=== PATIENT | female | born 1990 | race Caucasian/White ===

== ENCOUNTER 2017-02-04 01:41 | Inpatient (IN) | payer OTHER ==
[~2017-02-04] VITALS: Ht 157.5 cm; Wt 59.3 kg
[2017-02-04 01:54] LABS: URINE BLOOD (Dip) POC Negative (NEGATIVE)
[2017-02-04 02:03] VITALS: BP 125/90; PULSE 93; RESP 18
[2017-02-04] MEDS ORDERED: PREN-19 PO (02:05)
[2017-02-04] MEDS ORDERED: LACTATED RINGER'S 1,000 ML IV SCH (02:10)
[2017-02-04] MEDS ORDERED: METHYLERGONOVINE 0.2 MG INJ IM PRN ×2 (02:30→08:30)
[2017-02-04] MEDS ORDERED: IBUPROFEN 600 MG TAB PO PRN (02:30)
[2017-02-04] MEDS ORDERED: OXYTOCIN 30 UNITS/LR 500 ML IV PRN ×2 (02:30→08:30)
[2017-02-04] MEDS ORDERED: AMPICILLIN 2 GM/NS (PMX) 100 ML IV ONE (02:30)
[2017-02-04] MEDS ORDERED: CARBOPROST 250 MCG INJ IM PRN ×2 (02:30→08:30)
[2017-02-04] MEDS ORDERED: OXYTOCIN 30 UNITS/LR 500 ML IV SCH ×2 (02:30)
[2017-02-04] MEDS ORDERED: MISOPROSTOL 200 MCG TAB PR PRN ×2 (02:30→08:30)
[2017-02-04] MEDS ORDERED: LIDOCAINE 1% (MPF) 30 ML INJ INJ PRN (02:30)
[2017-02-04] MEDS ORDERED: BUTORPHANOL 2 MG INJ IV PRN (02:30)
[2017-02-04] MEDS ORDERED: LACTATED RINGER'S 1,000 ML IV PRN (03:00)
[2017-02-04 03:09] LABS: BASOPHILS % 0.2 % (0.0-2.0); EOSINOPHILS # 0.1 10^3/ul (0.0-0.5); EOSINOPHILS % 0.7 % (0.0-7.0); HEMATOCRIT 34.6 % (37.0-47.0); HEMOGLOBIN 11.2 g/dl (12.0-16.0); LYMPHOCYTES # 2.4 10^3/ul (0.8-2.9); LYMPHOCYTES % 23.6 % (15.0-51.0); MEAN CORPUSCULAR HEMOGLOBIN 28.3 pg (29.0-33.0); MEAN CORPUSCULAR HGB CONC 32.4 g/dl (32.0-37.0); MEAN CORPUSCULAR VOLUME 87.4 fl (82.0-101.0); MEAN PLATELET VOLUME 10.6 fl (7.4-10.4); MONOCYTE # 0.5 10^3/ul (0.3-0.9); MONOCYTES % 4.8 % (0.0-11.0); NEUTROPHIL # 7.1 10^3/ul (1.6-7.5); NEUTROPHILS % 69.8 % (39.0-77.0); PLATELET COUNT 225 10^3/UL (140-415); RED BLOOD COUNT 3.96 10^6/ul (4.20-5.40); RED CELL DISTRIBUTION WIDTH 18.5 % (11.5-14.5); WHITE BLOOD COUNT 10.2 10^3/ul (4.8-10.8)
--- NOTE | 2017-02-04 03:31 | HP ---
Date/Time of Note Date/Time of Note DATE: 02/04/17 TIME: 03:22 OB - History Hx of Present Free Text/Dictation 26y.o A0 at 39w5d in labor with uterine contractions q5min apart with intact membrane. no prenatla record is available at present admitted for expectant management GBS + Chief Complaint: UC's Estimated Due Date: Feb 06, 2017 : 4 Para: 3 Spontaneous : 0 Therapeutic : 0 Care: Other Ultrasounds: Other Obstetrical Complications: None Medical Complications: None Past Family/Social History * Past Medical, Surgical, Family and Obstetric Histories reviewed from chart. Blood Type: B+ Rubella: immune RPR/VDRL: Negative GBS Status: Positive HBsAG: Negative OB Admission Exam Vital Signs Vital Signs Vital Signs Date Time Temp Pulse Resp B/P Pulse Ox O2 Delivery O2 Flow Rate FiO2 02/04/17 02:03 98.2 93 18 125/90 Room Air Physical Exam HEENT: WNL Heart: Rhythm Normal Lungs: Clear, Equal Abdomen: WNL Extremities: Normal Reflexes: Normal Cervical Dilatation: 4cm Effacement: 75% Station: -2 Membranes: Intact Amniotic Fluid: Unevaluable Heart Rate: 130's Accelerations: Accelerations Present Decelerations: No Decelerations Varibility: Moderate Contractions on Admission: < 5 Minutes Apart Intensity: Moderate Last 72 hours Lab Results CBC & BMP 02/04/17 03:00 OB Assessment/Plan Reason for admission: active labor Other Assessment: IUP 39w5d Plan: Expectant Management Other plan: ampicillin MARTY SOSA MD Feb 04, 2017 03:31
[2017-02-04 03:36] LABS: INR 0.96; PROTIME 12.8 Sec (12.2-14.2)
[2017-02-04 03:37] LABS: ALBUMIN 3.2 g/dl (3.3-4.9); ALBUMIN/GLOBULIN RATIO 0.8; BILIRUBIN,INDIRECT 0.1 mg/dl (0-1.1); BILIRUBIN,TOTAL 0.1 mg/dl (0.2-1.3); CALCIUM 9.1 mg/dl (8.4-10.2); CREATININE 0.57 mg/dl (0.44-1.00); PARTIAL THROMBOPLASTIN TIME 26.9 Sec (25.0-35.0); TOTAL PROTEIN 7.2 g/dl (6.1-8.1); URIC ACID 5.4 mg/dl (3.1-7.9)
[2017-02-04] MEDS ORDERED: MINERAL OIL LIGHT 10 ML VIAL TOP ONE (05:30)
--- NOTE | 2017-02-04 05:34 | LDN ---
Date/Time of Note Date/Time of Note DATE: 02/04/17 TIME: 05:31 Delivery Summary Weeks of Gestation 39w5d Placenta Delivered: Spontaneously Meconium: none Episiotomy: No Perineal laceration: 0 Anesthesia type: None Estimated blood loss: 200 Sponge & Needle done & correct: Yes All needle counts correct: Yes Any foreign bodies felt in the: No Problems: Delivery Information Sex Infant Sex: female Apgars 1 Minute: 9 5 Minute: 9 Suctioning Nose & mouth suctioned at anushka: Yes Delee suction performed: No Umbilical Cord Umbilical cord with: 3 Vessels Cord presentations: no nuchal cord Cord Blood was obtained: Yes Mother & Baby Disposition Disposition Mom & Baby to Maternity; Good: Yes Mom transferred to: Other Baby to NICU: No () MARTY SOSA MD Feb 04, 2017 05:33
[2017-02-04] MEDS ORDERED: AMPICILLIN 1 GM/NS (PMX) 50 ML IV SCH (06:30)
[2017-02-04 08:00] VITALS: BP 111/75; PULSE 16; RESP 16
[2017-02-04] MEDS ORDERED: BENZOCAINE 20% 56 ML SPRAY TOP PRN (08:30)
[2017-02-04] MEDS ORDERED: ZOLPIDEM 5 MG TAB PO PRN (08:30)
[2017-02-04] MEDS ORDERED: LANOLIN 7 GM TUBE TOP PRN (08:30)
[2017-02-04] MEDS ORDERED: WITCH HAZEL/GLYCERIN PAD PR PRN (08:30)
[2017-02-04] MEDS ORDERED: OXYCODONE/ASPIRIN (4.88/325) TAB PO PRN ×2 (08:30)
[2017-02-04] MEDS: SENNA/DOCUSATE NA (8.6MG/50MG) TAB PO SCH ×2 (10:47→22:59)
[2017-02-04] MEDS: IBUPROFEN 600 MG TAB PO SCH ×2 (11:31→18:09)
[2017-02-04 16:00] VITALS: BP 104/73; PULSE 77; RESP 16
[2017-02-04 20:00] VITALS: BP 112/66; PULSE 87; RESP 20
[2017-02-05] MEDS: IBUPROFEN 600 MG TAB PO SCH ×4 (00:03→17:40)
[2017-02-05 04:00] VITALS: BP 104/61; PULSE 75; RESP 20
[2017-02-05 07:21] LABS: BASOPHILS % 0.2 % (0.0-2.0); EOSINOPHILS # 0.1 10^3/ul (0.0-0.5); EOSINOPHILS % 0.9 % (0.0-7.0); HEMATOCRIT 34.9 % (37.0-47.0); LYMPHOCYTES % 24.5 % (15.0-51.0); MEAN CORPUSCULAR HEMOGLOBIN 27.9 pg (29.0-33.0); MEAN CORPUSCULAR HGB CONC 31.5 g/dl (32.0-37.0); MEAN CORPUSCULAR VOLUME 88.6 fl (82.0-101.0); MEAN PLATELET VOLUME 10.5 fl (7.4-10.4); MONOCYTE # 0.5 10^3/ul (0.3-0.9); MONOCYTES % 3.7 % (0.0-11.0); NEUTROPHIL # 8.5 10^3/ul (1.6-7.5); NEUTROPHILS % 70.2 % (39.0-77.0); PLATELET COUNT 186 10^3/UL (140-415); RED BLOOD COUNT 3.94 10^6/ul (4.20-5.40); RED CELL DISTRIBUTION WIDTH 18.7 % (11.5-14.5); WHITE BLOOD COUNT 12.1 10^3/ul (4.8-10.8)
[2017-02-05 07:50] VITALS: BP 101/70; PULSE 18; RESP 18
[2017-02-05] MEDS ORDERED: INFLUENZA VIRUS VACCINE 0.5 ML (DISPENSING) IM* ONE (09:00)
[2017-02-05] MEDS: SENNA/DOCUSATE NA (8.6MG/50MG) TAB PO SCH ×2 (09:22→21:29)
--- NOTE | 2017-02-05 12:18 | QN ---
Documentation Comment PPD#1 is stable afebrile No VB +BM +voids VS stable Gen NAD Abd soft NT ND Genitalia No blood at perinium --->discharge plan tomorrow PAULA HOWELL M.D. Feb 05, 2017 12:18
[2017-02-05 16:15] VITALS: BP 101/68; PULSE 80; RESP 18
[2017-02-05 20:00] VITALS: BP 110/66; PULSE 76; RESP 20
[2017-02-06] MEDS: IBUPROFEN 600 MG TAB PO SCH ×4 (00:12→12:05)
[2017-02-06 04:00] VITALS: BP 101/66; PULSE 74; RESP 20
[2017-02-06 08:04] VITALS: BP 100/71; PULSE 76; RESP 16
[2017-02-06] MEDS ORDERED: DIPHTH/TET/ACEL PERTUSS (ADULT) 0.5 ML VIAL IM* ONE (09:00)
[2017-02-06] MEDS: SENNA/DOCUSATE NA (8.6MG/50MG) TAB PO SCH (10:04)
--- NOTE | 2017-02-06 15:07 | DS ---
Date/Time of Note Date/Time of Note DATE: 02/06/17 TIME: 15:05 Obstetrical Discharge Record Final Diagnosis Final Diagnosis: Term delivered Vaginal Delivery Obstetrical Delivery: Spontaneous Condition on Discharge Physical Assessment Voiding: Yes Fundus: Firm Calf Tenderness: No Patient Condition: Good VIRGIL NAVA Feb 06, 2017 15:07
== END 2017-02-06 17:00 | disposition home or self-care (01) | DRG 775 ==
LOC: OBT 01:41 → L-D 01:42 → OBT 02:20 → PP1 08:04
PROVIDERS: ADMIT Obstetrics & Gynecology; ATTEND Obstetrics & Gynecology
PROC: 10E0XZZ Delivery of Products of Conception, External Approach (ICD-10-PCS; principal; 2017-02-04)
PROC: 3E0234Z Introduction of Serum, Toxoid and Vaccine into Muscle, Percutaneous Approach (ICD-10-PCS; 2017-02-05)
PROC: 3E0234Z Introduction of Serum, Toxoid and Vaccine into Muscle, Percutaneous Approach (ICD-10-PCS; 2017-02-06)
DX: O99.824 Streptococcus B carrier state complicating childbirth (principal); Z37.0 Single live birth; Z3A.39 39 weeks gestation of pregnancy; Z23 Encounter for immunization
CPT/HCPCS: 36415; 80053; 81003; 84560; 85025; 85610; 85730; 86592; 86900; 86901; 87340; 90686; 90715; G0463; J0290; J2590; J7120